=== PATIENT | male | born 1985 ===

== ENCOUNTER → 2021-07-17 | Outpatient (CLI) | payer SELFPAY | LOC: LAB SHORT 11:03 | DX: D22.71 Melanocytic nevi of right lower limb, including hip (principal); D22.72 Melanocytic nevi of left lower limb, including hip; L72.8 Other follicular cysts of the skin and subcutaneous tissue; F17.200 Nicotine dependence, unspecified, uncomplicated; Z71.89 Other specified counseling | CPT/HCPCS: 87070; 87077; 87186; 87205 ==